=== PATIENT | male | born 1985 | race Caucasian/White ===

== ENCOUNTER 2017-02-21 22:29 | Emergency (ER) | payer MEDICARE, MEDICAID ==
[2017-02-21] MEDS ORDERED: ONDANSETRON INJ 4 MG/2 ML VIAL IV ONE (22:41)
[2017-02-21] MEDS ORDERED: LACTATED RINGERS 1,000 ML IVS ONE (22:54)
--- NOTE | 2017-02-21 22:57 | ED.PDOC ---
History of Present Illness - General Chief Complaint: Abdominal Pain Stated Complaint: left lower abd pain Time Seen by Provider: 02/21/17 22:53 Source: patient Exam Limitations: no limitations - History of Present Illness Initial Comments: Stanley Cm 31 y/o male with history of kidney stone in 2005 brought by family with left sided stabbing abdominal pain stated about 4 hours becoming more constant pain getting worse.No nausea,vomiting diarrhea. Timing/Duration: 4-6 hours, constant Severity: moderate Improving Factors: nothing Worsening Factors: nothing Associated Symptoms: denies symptoms Allergies/Adverse Reactions: Allergies Clonidine Allergy (Verified 02/21/17 22:40) Home Medications: Ambulatory Orders Ketorolac Tromethamine [Toradol Tabs] 10 mg PO TID PRN #10 tab 02/22/17 Tamsulosin [Flomax] 0.4 mg PO QDPC #7 cap 02/22/17 Review of Systems - Review of Systems Constitutional: States: no symptoms reported EENTM: States: no symptoms reported Respiratory: States: no symptoms reported Cardiology: States: no symptoms reported Gastrointestinal/Abdominal: States: see HPI Genitourinary: States: see HPI Musculoskeletal: States: no symptoms reported Skin: States: no symptoms reported Neurological: States: other - schizophrenia Past Medical History (General) - Patient Medical History Hx Seizures: No Hx Asthma: No Hx Cardiac Disorders: No Hx Congestive Heart Failure: No Hx Hypertension: No Hx Thyroid Disease: Yes Hx Diabetes: No Hx Gastroesophageal Reflux: No Hx Other PMH: Yes - nephrolithiasis, Surgical History: no surgical history - Vaccination History Hx Tetanus, Diphtheria Vaccination: No Hx Influenza Vaccination: No Hx Pneumococcal Vaccination: No - Social History Hx Tobacco Use: Yes Hx Alcohol Use: Yes - occ - Activities of Daily Living Patient Lives Alone: No - family Hospice Agency (if applicable):: None Grooming Ability: Independent Eating (Feeding) Ability: Independent Toileting Ability: Independent Family Medical History - Family History Mother Family History: Unknown Hx Family;Other: ADOPTED Physical Exam - Physical Exam General Appearance: Alert, No apparent distress, Other - in pain Eye Exam: bilateral normal Ears, Nose, Throat: hearing grossly normal, normal ENT inspection, normal pharynx Neck: non-tender, full range of motion, supple Respiratory: chest non-tender, lungs clear, normal breath sounds, no respiratory distress Cardiovascular/Chest: normal peripheral pulses, regular rate, rhythm, no murmur Peripheral Pulses: radial,right: 2+, radial,left: 2+ Gastrointestinal/Abdominal: soft, tenderness - left lower quadrant no peritoneal signs Back Exam: normal inspection, no CVA tenderness, no vertebral tenderness Extremity: non-tender, no pedal edema, no calf tenderness Neurologic: no motor/sensory deficits, alert, normal mood/affect, oriented x 3 Skin Exam: normal color, warm/dry Lymphatic: no adenopathy Progress - Results/Orders Results/Orders: Vital Signs - 8 hr 02/21/17 02/21/17 02/22/17 22:47 23:29 00:27 Temperature 99.2 F Pulse Rate [ 98 H 98 H 99 H left] Respiratory 18 18 18 Rate Blood Pressure 162/118 159/104 160/98 [left] O2 Sat by Pulse 93 L 97 97 Oximetry 02/22/17 00:41 Sodium Chloride 0.9% 1000ML [Ns 1000 ml] 1,000 ml IVS ONCE Laboratory Results WBC 12.3 K/mm3 (4.8-10.8) H 02/21/17 22:21 RBC 4.76 M/mm3 (4.70-6.10) 02/21/17 22:21 Hgb 13.8 gm/dL (14.0-18.0) L 02/21/17 22:21 Hct 41.4 % (42.0-52.0) L 02/21/17 22:21 MCV 87.0 fl (80.0-94.0) 02/21/17 22:21 MCH 28.9 pg (27.0-31.0) 02/21/17 22:21 MCHC 33.4 g/dL (33.0-37.0) 02/21/17 22:21 RDW 14.2 % (11.5-14.5) 02/21/17 22:21 Plt Count 268 K/mm3 (130-400) 02/21/17 22:21 MPV 9.4 fl (7.40-10.4) 02/21/17 22:21 Absolute Neuts (auto) 10.40 K/uL (1.8-6.8) H 02/21/17 22:21 Absolute Lymphs (auto) 0.90 K/uL (1.0-3.4) L 02/21/17 22:21 Absolute Monos (auto) 1.00 K/uL (0.2-0.8) H 02/21/17 22:21 Absolute Eos (auto) 0.00 K/uL (0.0-0.4) 02/21/17 22:21 Absolute Basos (auto) 0.00 K/uL (0.0-0.1) 02/21/17 22:21 Neutrophils % 84.2 % (42.0-78.0) H 02/21/17 22:21 Lymphocytes % 7.0 % (20.0-50.0) L 02/21/17 22:21 Monocytes % 8.1 % (2.0-9.0) 02/21/17 22:21 Eosinophils % 0.4 % (1.0-5.0) L 02/21/17 22:21 Basophils % 0.3 % (0.0-2.0) 02/21/17 22:21 Sodium 140 mmol/L (135-145) 02/21/17 22:21 Potassium 3.7 mmol/L (3.6-5.0) 02/21/17 22:21 Chloride 107 mmol/L (101-111) 02/21/17 22:21 Carbon Dioxide 26 mmol/L (21-31) 02/21/17 22:21 Anion Gap 10.7 (12-18) L 02/21/17 22:21 BUN 13 mg/dL (7-18) 02/21/17 22:21 Creatinine 1.24 mg/dL (0.6-1.3) 02/21/17 22:21 BUN/Creatinine Ratio 10.5 (10-20) 02/21/17 22:21 Random Glucose 118 mg/dL (70-105) H 02/21/17 22:21 Serum Osmolality 280.6 mOsm/L (275-295) 02/21/17 22:21 Calcium 9.7 mg/dL (8.4-10.2) 02/21/17 22:21 Total Bilirubin 0.5 mg/dL (0.2-1.0) 02/21/17 22:21 AST 32 IU/L (10-42) 02/21/17 22:21 ALT 63 IU/L (10-60) H 02/21/17 22:21 Alkaline Phosphatase 63 IU/L (42-121) 02/21/17 22:21 Serum Total Protein 8.0 gm/dL (6.4-8.2) 02/21/17 22:21 Albumin 4.7 g/dl (3.2-5.5) 02/21/17 22:21 Globulin 3.3 gm/dL (2.3-3.5) 02/21/17 22:21 Albumin/Globulin Ratio 1.4 (1.1-1.9) 02/21/17 22:21 Lipase 24 U/L (22-51) 02/21/17 22:21 Urine Color Yellow (Yellow) 02/21/17 23:10 Urine Appearance Sl cloudy (Clear) 02/21/17 23:10 Urine pH 5.5 (4.5-7.8) 02/21/17 23:10 Ur Specific [place] 1.025 (1.005-1.030) 02/21/17 23:10 Urine Protein 100 mg/dL H 02/21/17 23:10 Urine Glucose (UA) Negative mg/dL (Negative) 02/21/17 23:10 Urine Ketones 40 mg/dL (NEGATIVE) H 02/21/17 23:10 Urine Blood Large (Negative) H 02/21/17 23:10 Urine Nitrite Negative 02/21/17 23:10 Urine Bilirubin Small (NEGATIVE) H 02/21/17 23:10 Urine Urobilinogen 0.2 mg/dL (0.2-1.0) 02/21/17 23:10 Ur Leukocyte Esterase Negative (Negative) 02/21/17 23:10 Urine RBC >50 /hpf H 02/21/17 23:10 Urine WBC 1-3 /hpf 02/21/17 23:10 Ur Epithelial Cells 0-1 /hpf 02/21/17 23:10 Amorphous Sediment 1+ 02/21/17 23:10 Urine Bacteria Rare 02/21/17 23:10 Urine Mucus Trace 02/21/17 23:10 Urine Sperm 0-1 /hpf 02/21/17 23:10 Urine Opiates Screen Negative ng/mL (1999) 02/21/17 23:10 Urine Barbiturates Negative ng/mL () 02/21/17 23:10 Ur Phencyclidine Scrn Negative ng/mL () 02/21/17 23:10 U Amphetamin/Meth Scrn Negative ng/mL (1000) 02/21/17 23:10 U Benzodiazepines Scrn Negative ng/mL (200) 02/21/17 23:10 U Cocaine Metab Screen Negative ng/mL (300) 02/21/17 23:10 U Cannabinoids Screen Negative ng/mL (50) 02/21/17 23:10 - EKG/XRAY/CT CT: per radiologist CT Ordered: Yes - abdomen/pelvis:left distal ureteral stone 4 mm/left hydronephrosis Departure - Departure Clinical Impression: Microscopic hematuria, Ureterolithiasis Abdominal pain Qualifiers: Abdominal location: left lower quadrant Qualified Code(s): R10.32 - Left lower quadrant pain Time of Disposition: 01:18 Disposition: Discharge to Home or Self Care Condition: Fair Departure Forms: ED Discharge - Pt. Copy, Patient Portal Self Enrollment Instructions: DI for Abdominal Pain-Adult Diet: other - Drink extra fluids Prescriptions: Ketorolac Tromethamine [Toradol Tabs] 10 mg PO TID PRN #10 tab PRN Reason: Pain Tamsulosin [Flomax] 0.4 mg PO QDPC #7 cap Home Medications: Ambulatory Orders Ketorolac Tromethamine [Toradol Tabs] 10 mg PO TID PRN #10 tab 02/22/17 Tamsulosin [Flomax] 0.4 mg PO QDPC #7 cap 02/22/17 Additional Instructions: RETURN TO EMERGENCY ROOM NEEDED
[2017-02-21] MEDS ORDERED: PROCHLORPERAZINE INJ 10 MG/2 ML VIAL IV ONE (22:58)
[2017-02-22] MEDS ORDERED: MORPHINE SULFATE INJ 10 MG/ML VIAL IV ONE (00:04)
[2017-02-22] MEDS ORDERED: KETOROLAC TROMETHAMINE INJ 30 MG/ML VIAL IV ONE (00:04)
[2017-02-22] MEDS ORDERED: TAMSULOSIN 0.4 MG CAP PO ONE (00:05)
[2017-02-22] MEDS ORDERED: SODIUM CHLORIDE 0.9% 1000ML 1,000 ML IVS ONE (00:41)
--- NOTE | 2017-02-22 00:48 | CT ---
EXAM DESCRIPTION: Abdoment/Pelvis w/o Contrast CLINICAL HISTORY: hematuria COMPARISON: None Available TECHNIQUE: Contiguous axial images of the abdomen and pelvis were obtained followed by reconstruction images. This exam was performed according to our departmental dose-optimization program, which includes automated exposure control, adjustment of the mA and/or kV according to patient size and/or use of iterative reconstruction technique. FINDINGS: Linear opacities within the lungs may represent scar versus subsegmental atelectasis. The liver is of decreased attenuation compatible with fatty infiltration. There is a nonobstructive stone within the left kidney. There is also mild left-sided hydronephrosis due to a 4 mm stone within the distal ureter. The liver, spleen, pancreas and right kidney are otherwise within normal limits. The gallbladder is unremarkable by CT criteria. Adrenal glands are within normal limits. Aorta is of normal caliber and tapering. There is no free fluid in the abdomen or pelvis. There is no bowel obstruction. The appendix was not visualized. There is no pericecal inflammation. IMPRESSION: Left-sided hydronephrosis due to a 4 mm stone within the distal ureter. Electronically signed by: Tavon Bajwa MD 02/22/2017 12:48 AM CDT
[2017-02-22 02:39] VITALS: BP 139/78; TEMP 97.9; O2SAT 95
== END 2017-02-22 02:10 | disposition home or self-care (01) ==
LOC: ER 22:29
DX: N13.2 Hydronephrosis with renal and ureteral calculous obstruction (principal); E07.9 Disorder of thyroid, unspecified; Z87.891 Personal history of nicotine dependence; Z88.8 Allergy status to other drugs, medicaments and biological substances
CPT/HCPCS: 36415; 74176; 80053; 80307; 81001; 83690; 85025; J0780; J1885; J7030; J7120

== ENCOUNTER → 2017-04-20 | Outpatient (CLI) | payer MEDICARE, MEDICAID | END | disposition home or self-care (01) | LOC: YCFC.O 14:14 | PROVIDERS: ATTEND Nurse Practitioner Family | DX: E03.9 Hypothyroidism, unspecified (principal); R73.09 Other abnormal glucose; I10 Essential (primary) hypertension; Z68.41 Body mass index [BMI] 40.0-44.9, adult; Z13.220 Encounter for screening for lipoid disorders; Z13.1 Encounter for screening for diabetes mellitus ==

== ENCOUNTER 2018-06-02 18:12 | Emergency (ER) | payer MEDICARE, MEDICAID ==
[2018-06-02] MEDS ORDERED: ACETAMINOPHEN 325 MG TAB PO ONE (19:20)
[2018-06-02] MEDS ORDERED: predniSONE 20 MG TAB PO ONE (19:20)
[2018-06-02] MEDS ORDERED: IBUPROFEN 200 MG TAB PO ONE (19:20)
--- NOTE | 2018-06-02 19:21 | ED.PDOC ---
History of Present Illness - General Chief Complaint: General Stated Complaint: headache, cough, congestion Time Seen by Provider: 06/02/18 19:17 Source: patient Exam Limitations: no limitations - History of Present Illness Initial Comments: pt here with less than 24 hours of runny nose and mild headache. no nucahl rigidity. no ams. no sob, mild clearing cough. does have a fever here. no neuro changes. no n/v. no syncope. throat and lungs are clear at this time. no hx of any chronic diseases according to him. no sob or chronic lung disease or recurrent pneumonia. Timing/Duration: 24 hours Severity: moderate Improving Factors: nothing Worsening Factors: nothing Associated Symptoms: headaches, loss of appetite Allergies/Adverse Reactions: Allergies Clonidine Allergy (Verified 02/21/17 22:40) Home Medications: Ambulatory Orders Ketorolac Tromethamine [Toradol Tabs] 10 mg PO TID PRN #10 tab 02/22/17 Tamsulosin [Flomax] 0.4 mg PO QDPC #7 cap 02/22/17 Review of Systems - Review of Systems Constitutional: States: fever, malaise EENTM: States: nose congestion Respiratory: States: cough Cardiology: States: no symptoms reported Gastrointestinal/Abdominal: States: no symptoms reported Genitourinary: States: no symptoms reported Musculoskeletal: States: no symptoms reported Skin: States: no symptoms reported Neurological: States: headache Endocrine: States: no symptoms reported All other Systems: No Change from Baseline Past Medical History (General) - Patient Medical History Hx Seizures: No Hx Asthma: No Hx Cardiac Disorders: No Hx Congestive Heart Failure: No Hx Hypertension: Yes Hx Thyroid Disease: Yes Hx Diabetes: No Hx Gastroesophageal Reflux: Yes Surgical History: other - Vaccination History Hx Tetanus, Diphtheria Vaccination: No Hx Influenza Vaccination: No Hx Pneumococcal Vaccination: No - Social History Hx Tobacco Use: Yes Hx Alcohol Use: No - Triage Comment ED Triage Comment: Reports having a STEPHEN and cough that started yesterday. Denies fevers. Temp 102.3. Pt states he has HTN, but is not taking his BP medications. Family Medical History - Family History Mother Family History: Unknown Hx Family;Other: ADOPTED Physical Exam - Physical Exam General Appearance: Alert, Comfortable, No apparent distress Eye Exam: bilateral normal Ears, Nose, Throat: hearing grossly normal, normal pharynx, nasal congestion Neck: full range of motion, supple, normal inspection Respiratory: lungs clear, normal breath sounds, no respiratory distress, no accessory muscle use Cardiovascular/Chest: normal peripheral pulses, regular rate, rhythm, no edema Peripheral Pulses: radial,right: 2+, radial,left: 2+, dorsalis pedis,right: 2+, dorsalis pedis,left: 2+ Gastrointestinal/Abdominal: non tender, soft Rectal Exam: deferred Extremity: non-tender, no pedal edema, no calf tenderness, normal capillary refill Neurologic: housekeeping coordinator II-XII nml as tested, alert, normal mood/affect, oriented x 3 Skin Exam: normal color Comments: Vital Signs - 24 hr 06/02/18 19:12 Temperature 102.3 F H Pulse Rate [ 103 H left] Respiratory 16 Rate Blood Pressure 161/92 [left] O2 Sat by Pulse 94 L Oximetry Progress - Progress Progress: 06/02/18 19:22 patient is here with symptoms of a common cold for the last day. no clinical evidence of any pneumonia. motrin and tylenol given here. he can alternate these to help control fever and reduce headache. he needs to keep himself well hydrated. return to the er for any worsening. he should expect symptoms to last for another 3 or 4 days. keep followup with pcp early next week otherwise. Departure - Departure Clinical Impression: Common cold Disposition: Discharge to Home or Self Care Condition: Fair Departure Forms: ED Discharge - Pt. Copy, Patient Portal Self Enrollment Instructions: Cough, Runny Nose, and the Common Cold (DC) Diet: regular diet Activity: increase activity as tolerated Referrals: Janessa Dennis RATE EXAMINER [Primary Care Provider] - 1-5 Days Home Medications: Ambulatory Orders Ketorolac Tromethamine [Toradol Tabs] 10 mg PO TID PRN #10 tab 02/22/17 Tamsulosin [Flomax] 0.4 mg PO QDPC #7 cap 02/22/17 Additional Instructions: patient is here with symptoms of a common cold for the last day. no clinical evidence of any pneumonia. motrin and tylenol given here. he can alternate these to help control fever and reduce headache. he needs to keep himself well hydrated. return to the er for any worsening. he should expect symptoms to last for another 3 or 4 days. keep followup with pcp early next week otherwise.
[2018-06-02 19:41] VITALS: BP 158/72; TEMP 100.8; O2SAT 95
== END 2018-06-02 19:41 | disposition home or self-care (01) ==
LOC: ER 18:12
DX: J00 Acute nasopharyngitis [common cold] (principal); R51 Headache; I10 Essential (primary) hypertension; E07.9 Disorder of thyroid, unspecified; K21.9 Gastro-esophageal reflux disease without esophagitis; Z88.8 Allergy status to other drugs, medicaments and biological substances